=== PATIENT | female | born 1960 | race Caucasian/White ===

== ENCOUNTER → 2018-06-27 | Outpatient (CLI) | payer OTHER ==
[~2018-06-27] MED LIST: APIX5TAB PO; CHOL20002 PO; DIAZ5TAB PO; DIPH-419 PO; ENOX100S5 SQ; ENOX40SY4 SQ; EXEN2PEN SQ; GLAT20KI INJ; HYDR-3307 PO; INSU100I32 SC; INSU100V8 SQ; LEVO150T PO; OMEP-110 PO; OXYB15TA PO; OXYC10TA47 PO; PANT40TA5 PO; ROSU20TA PO; TERI14TA PO; VALS1TAB28 PO; WARF10TA43 PO
[2018-06-27 15:17] LABS: ALANINE AMINOTRANSFERASE 35 U/L (12-78); ALBUMIN 3.5 g/dL (3.4-5.0); ANION GAP 6 mmol/L (5-15); CALCIUM 8.9 mg/dL (8.5-10.1); CHLORIDE 107 mmol/L (98-107); CREATININE 1.21 mg/dL (0.55-1.02)
[2018-06-27 15:19] LABS: ALKALINE PHOSPHATASE 87 U/L (45-117); BILIRUBIN,TOTAL 0.5 mg/dL (0.2-1.0); TOTAL PROTEIN 7.1 g/dL (6.4-8.2)
== END | disposition home or self-care (01) ==
LOC: STAR 14:04
PROVIDERS: ATTEND Otolaryngology
DX: Z01.818 Encounter for other preprocedural examination (principal); J35.2 Hypertrophy of adenoids
CPT/HCPCS: 36415; 80053; 93005

== ENCOUNTER 2018-07-02 06:35 | Day surgery (SDC) | payer OTHER ==
[~2018-07-02] VITALS: Ht 167.6 cm; Wt 121.3 kg
[2018-07-02 06:54] VITALS: BP 143/85
[2018-07-02] MEDS ORDERED: LACTATED RINGERS 1,000 ML IV SCH (06:57)
[2018-07-02] MEDS ORDERED: LIDOCAINE-MPF 1%, 2ML INFIL ONE (07:00)
[2018-07-02] MEDS ORDERED: OXYMETAZOLINE NASAL SPRAY 0.05%, 15ML ONE (07:07)
[2018-07-02] MEDS ORDERED: GABAPENTIN 300 MG CAPSULE PO ONE (07:30)
[2018-07-02] MEDS ORDERED: SCOPOLAMINE PATCH, 1.5MG PATCH.TD72 TD ONE (07:30)
[2018-07-02] MEDS ORDERED: ACETAMINOPHEN 500 MG TABLET PO ONE (07:30)
[2018-07-02] MEDS ORDERED: MIDAZOLAM 1 MG/ML, 2ML ONE (07:55)
[2018-07-02] MEDS ORDERED: FENTANYL PF 250 MCG/5ML ONE (07:56)
[2018-07-02] MEDS ORDERED: METOCLOPRAMIDE 5 MG/ML, 2ML IV PRN (08:00)
[2018-07-02] MEDS ORDERED: LABETALOL 5MG/ML, 20ML IV PRN (08:00)
[2018-07-02] MEDS ORDERED: PROMETHAZINE 25 MG/ML, 1ML IV PRN (08:00)
[2018-07-02] MEDS ORDERED: ALBUTEROL SULFATE 2.5 MG/3 ML NPPB PRN (08:00)
[2018-07-02] MEDS ORDERED: KETOROLAC 30 MG/1 ML IV PRN (08:00)
[2018-07-02] MEDS ORDERED: FENTANYL PF 100 MCG/2ML IV PRN (08:00)
[2018-07-02] MEDS ORDERED: HYDROmorphone 1 MG/ML, 1ML IV PRN (08:00)
[2018-07-02] MEDS ORDERED: OXYcodone 5 MG/5 ML ORAL.SOL UDC PO PRN (08:00)
[2018-07-02] MEDS ORDERED: ONDANSETRON 2MG/ML, 2ML IVPush PRN (08:00)
[2018-07-02] MEDS ORDERED: hydrALAzine 20 MG/ML, 1ML IV PRN (08:00)
[2018-07-02] MEDS ORDERED: MEPERIDINE/PF 25MG/0.5ML IVPush PRN (08:00)
[2018-07-02] MEDS ORDERED: ONDANSETRON 2MG/ML, 2ML ONE (08:35)
[2018-07-02] MEDS ORDERED: ROCURONIUM 10 MG/ML,10ML ONE (08:35)
[2018-07-02] MEDS ORDERED: SUCCINYLCHOLINE 20 MG/ML, 10ML ONE (08:35)
[2018-07-02] MEDS ORDERED: PROPOFOL 10 MG/ML, 20ML ONE (08:35)
[2018-07-02] MEDS ORDERED: CEFAZOLIN 1,000 MG ONE (08:35)
[2018-07-02] MEDS ORDERED: OXYcodone 5 MG/5 ML ORAL.SOL UDC ONE (09:27)
[2018-07-02] MEDS ORDERED: FENTANYL PF 100 MCG/2ML ONE (09:51)
== END 2018-07-02 12:30 | disposition home or self-care (01) ==
LOC: OUT 06:35
PROVIDERS: ATTEND Otolaryngology
DX: J35.02 Chronic adenoiditis (principal); E11.9 Type 2 diabetes mellitus without complications; Z86.718 Personal history of other venous thrombosis and embolism; Z86.711 Personal history of pulmonary embolism; Z98.890 Other specified postprocedural states; Z79.4 Long term (current) use of insulin; Z79.899 Other long term (current) drug therapy
CPT/HCPCS: 42831; 82962; 88305; J0330; J0690; J2250; J2405; J2704; J3010; J7120